=== PATIENT | male | born 2000 | race Caucasian/White ===

== ENCOUNTER 2021-03-26 22:19 | Inpatient (IN) | payer BC, SELFPAY ==
[~2021-03-26] VITALS: Ht 170.2 cm; Wt 61.4 kg
--- NOTE | 2021-03-26 23:11 | REPVR ---
PROCEDURE INFORMATION: Exam: CT Head Without Contrast Exam date and time: 03/26/2021 10:46 PM Age: 20 years old Clinical indication: Psychosis or psychotic disorder; Unspecified; Additional info: New onset psychosis TECHNIQUE: Imaging protocol: Computed tomography of the head without contrast. Radiation optimization: All CT scans at this facility use at least one of these dose optimization techniques: automated exposure control; mA and/or kV adjustment per patient size (includes targeted exams where dose is matched to clinical indication); or iterative reconstruction. COMPARISON: No relevant prior studies available. FINDINGS: Brain: Normal. No hemorrhage. Unremarkable white matter. No mass effect. Cortical loza-white matter differentiation is preserved. Cerebral ventricles: No ventriculomegaly. Paranasal sinuses: Visualized sinuses are unremarkable. No fluid levels. Mastoid air cells: Visualized mastoid air cells are well aerated. Bones/joints: Unremarkable. No acute fracture. Soft tissues: Unremarkable. IMPRESSION: No acute intracranial abnormality. Electronically signed by: Cathi Mckee On 03/26/2021 23:10:13 PM
[2021-03-26 23:34] LABS: HEMATOCRIT 43.9 % (42.0-52.0); MEAN CORPUSCULAR HEMOGLOBIN 30.9 pg (27.0-33.0); MEAN CORPUSCULAR HGB CONC 34.2 g/dl (32.0-36.5); MEAN CORPUSCULAR VOLUME 90.3 fl (80.0-96.0); PLATELET COUNT, AUTOMATED 282 10^3/uL (150-450); RED BLOOD COUNT 4.86 10^6/uL (4.30-6.10); WHITE BLOOD COUNT 11.7 10^3/uL (4.0-10.0)
[2021-03-27 00:01] LABS: ACETAMINOPHEN LEVEL < 2.0 UG/ML (10.0-30.0); ALT/SGPT 25 U/L (12-78); BILIRUBIN,DIRECT 0.3 MG/DL (0.0-0.2); BILIRUBIN,TOTAL 0.7 MG/DL (0.2-1.0); BLOOD UREA NITROGEN 17 MG/DL (7-18); CALCIUM LEVEL 8.8 MG/DL (8.5-10.1); CARBON DIOXIDE LEVEL 28 MEQ/L (21-32); CHLORIDE LEVEL 105 MEQ/L (98-107); CREATININE FOR GFR 0.91 MG/DL (0.70-1.30); ETHYL ALCOHOL (ETHANOL) < 0.003 % (0.000-0.010); GLOMERULAR FILTRATION RATE > 60.0 (>60); GLUCOSE, FASTING 81 MG/DL (70-100); POTASSIUM SERUM 3.9 MEQ/L (3.5-5.1); SALICYLATE LEVEL 3.7 MG/DL (5.0-30.0); SODIUM LEVEL 142 MEQ/L (136-145); THYROID STIMULATING HORMONE 0.648 uIU/ML (0.358-3.740); TOTAL PROTEIN 6.9 GM/DL (6.4-8.2)
[2021-03-27 00:03] LABS: RSV AMPLIFICATION NEGATIVE (NEGATIVE)
[2021-03-27 02:30] LABS: AMPHETAMINES LEVEL URINE NEGATIVE (NEGATIVE); BARBITURATES URINE NEGATIVE (NEGATIVE); BENZODIAZEPINES URINE NEGATIVE (NEGATIVE); CANNABINOIDS URINE POSITIVE (NEGATIVE); COCAINE METABOLITE URINE NEGATIVE (NEGATIVE); METHADONE URINE NEGATIVE (NEGATIVE); OPIATES URINE NEGATIVE (NEGATIVE); PHENCYCLIDINE URINE NEGATIVE (NEGATIVE)
[2021-03-27] MEDS ORDERED: MOM 30ML SUSPENSION UDC PO PRN (05:15)
[2021-03-27] MEDS ORDERED: MAALOX 30 ML SUSP *UDC PO PRN (05:15)
[2021-03-27] MEDS ORDERED: ACETAMINOPHEN TAB 650MG DOSE (2X325MG) PO PRN (05:15)
--- NOTE | 2021-03-27 05:58 | ECGEPIP ---
[facility] - ED Test Date: 2021-03-26 Pat Name: ANNA HEAD Department: Room: - Gender: Male Assistant Manager Trainee: SUNNI : 2000 Requested By: CHAYA Johnson Order Number: [id number] Reading MD: Kendall Medrano Measurements Intervals [place] Rate: 72 P: 78 LA: 144 QRS: 84 QRSD: 92 T: 63 QT: 410 QTc: 448 Interpretive Statements Normal sinus rhythm with sinus arrhythmia MODERATE INTRAVENTRICULAR CONDUCTION DELAY NO PRIORS FOR COMPARISON Electronically Signed on 03-27-2021 5:57:56 EST by Kendall Medrano
[2021-03-27] MEDS ORDERED: VITATAB73 PO (06:34)
[2021-03-27] MEDS ORDERED: D31000TA2 PO (06:34)
[2021-03-27] MEDS ORDERED: HOME MED LIST COMPLETE! XX SCH (06:35)
[2021-03-27] MEDS ORDERED: diphenhydrAMINE 50MG/ML VIAL (J1200) IM STA (12:33)
[2021-03-27] MEDS ORDERED: HALOPERIDOL 5MG/ML VIAL (J1630 PER 1) IM STA (12:33)
[2021-03-27] MEDS ORDERED: LORazepam 2 MG/ML VIAL IM STA (12:33)
[2021-03-27 16:30] VITALS: BP 100/51
--- NOTE | 2021-03-28 12:08 | MHHPEPDOC ---
General Date Of Admission: Mar 27, 2021 Legal Status: 9.39 Chief Complaint "I was running away from the Illuminati." History of Present Illness HISTORY OF THE PRESENT ILLNESS: Patient is a 20 -year-old Single, Employed, Domiciled, , male, who was brought in on a 9.41 by [place] [employer] after the patient called 911. Prior to his interview this morning, patient had taken the batteries out of cordless phone and stated that the government was listening to his conversations. Prior to his interview patient was in the doorway attempting to leave his room. Patient is Covid positive and was redirected to his room, explained the quarantine policy, and patient began to argue with staff. Patient then began to argue hospital about hospital policy, restrictions, and conspiracies. After much encouragement, patient was agreeable to interview. Patient reports in his interview today that he was run juliane away from the police after he called them. Patient talks about running away from "illuminati "that these are white people who descended from [place]. Patient believes broadcasting is happening to the phone, who is quite paranoid although cooperative in the interview, need delusional and bizarre statements throughout his interview. Patient denies any illicit use of drugs other than cannabis, denies alcohol use and reports that he has had periods of poor sleep. PER ED REPORT Pt was brought to the ED by police on a 9.41 due to bizarre behavior. Per police, on the night of 03/25/21 pt. called police & reported that he found things in the [place] that he thought police needed to see. When police arrived pt. refused to identify himself & then got in his car & took off. Police were concerned about his behavior & thought he might be under the influence so they attempted to pull him over. Pt refused to door puller & led police on a lizzy. At one point pt. was doing 90mph so police called off the lizzy due to it being too dangerous. [facility] police were called by a third constitution party who stated that pt. was on their porch & had spent the night in the [place]. Pt told police that he had been kidnapped by the Illuminati. Police spoke to pt.s mother, who had reported him missing, & she states that this behavior is not normal for pt. Pt states that he does not remember who brought him to the ED & states that he forgets things a lot. He stated that he was brought to the ED because the police are the Illuminati & "life is all just a damn lie." Pt states that he has proof that the Illuminati are doing witchcraft. He then states that he has lived through three lives, not literally but through personification, & that the three lives were past, present, & future. Pt also states that he was kidnapped by the Illuminati & that he slept in the [place] because they stole his car & money. Pt is very focused on the letter I & also states that the letter I relates to eyes. Pt also states that "shape shifters are real & I am one." Pt's TP is very disorganized & he is very hard to follow. He often provides answers that do not make sense in relation to the questions asked. For example, when asked why he was in the [place] area he stated "Alessio Gilberto." When asked about OP tx pt. stated "music & self-love." Pt's hands are covered in dirt & he is disheveled. He often laughs inappropriately. Pt denies both SI & HI. He states that he has had many suicide attempts in the past & states "we all have." Pt states he attempted suicide via "lynching." When asked about AH pt. states "I hear your voice & also the one giving me all the answers." When asked who is giving him the answers he states "[place], the goddess of wisdom." Pt reports a Hx of depression with no admissions. TW was unable to get pt. to answer questions about mood, concentration, energy levels, sleep, & appetite due to pt.s level of disorganization. TW was also unable to complete PHQ-4, RODS, or CAGE for the same reason. Pt reports occasional alcohol use & daily MJ use. His tox screen was positive for cannabis. TW spoke to pt.s mother, Vanessa Steinberg ([phone]), with pt.s permission. She states that pt has no Hx of mental health px's but over the past two weeks has become paranoid & delusional. She states that pt. has told her that people are out to hurt him & are chasing him. He also believes his mother is conspiring a gainst him. Vanessa states that he has suddenly started talking about witchcraft, gods, & goddesses. She states that pt. has trouble following what people are saying, he cannot stay on topic, & has a poor memory. She states that she does not know why put came to the [facility] (he lives in the [facility]). She states that pt. uses MJ & she is wondering if the MJ was laced with something that could cause psychosis. Psychiatric Review of Systems Depression (2 or more weeks): denies Lea (4 or more days of): denies Psychosis: visual hallucination, delusions, paranoia, disorganization PTSD: denies Anxiety: denies Past Psychiatric History Previous Psychiatric Diagnosis: ADHD Previous Psychiatric Admissions: This is the first Suicide Attempts: history of cutting Psychiatric Follow-up: none Psychiatric medications: None Past Medical History Medical Problems Noncontributory medical issues No history of surgeries No known drug allergies Hospitalizations: No Surgeries: No Family Medical/Psychiatric HX Medical Problems Maternal uncleintellectual disability Fatherhypertension Psychiatric Disorders: No Addiction: No Suicide Attemps/Completions: No (But he states "everyone has tried ") Addiction History other (Cannabis) Social History Childhood: Reports that he is from [place], has 4 brothers and 1 sister. He is the second to the last child Abuse/Trauma: Denies. Current Living Situation: Lives alone in [place]. Education: High school graduate. Employment: Works for [employer]. Social Support: Mother is supportive, he reported none. Legal: He was on probation for class III felony arson. Marital: Single, has 2 children 1 son and a daughter pays $616/month for child support. Hobbies: Working on [employer] cars, has a [address] [employer] Mental Status Examination General Appearance: unkempt, disheveled, appears stated age, hospital scubs/clothing Build: average Demeanor: mistrustful, preoccupied, guarded Eye Contact: fair Activity: agitated Behavior: uncooperative Speech: clear, reg/rate,rhythm,volume Mood: irritable Affect: disorganized Thought Process: tangential, loose, flight of ideas Thought Content (Delusions): persecutory, bizarre, paranoia, delusions Thought Content (Other): preoccupied, guarded, ideas of reference Thought Content (Aggressive): none reported Perception (Hallucinations): visual Perception (Other): illusions Cognition (Impairment of): attention/concentration Cognition(Intelligence Est.): average Oriented: Awake, Alert Insight: poor Judgment: Poor Psychosis: Psychotic Perceptions Diagnoses Unspecified psychotic disorder Cannabis use disorder A-FIB/CHADSVASC A-FIB History Current/History of A-Fib/PAF?: No Current PO Anticoag Therapy: No Assessment Patient is a 20-year-old single, employed, domiciled male who called the police on himself. The police found the patient to be psychotic and delusional. Patient had initially refused to identify himself got into his car and was in a high-speed lizzy with the police at times going as high as 90 miles an hour. On interview patient is quite psychotic and delusional. Patient reports that he was being chased by the illuminati who reports are white people from [place] in that he is also being chased by Hitler. In the interview he mention that he can touch water because water causes harm to humans as well as that is very damaging to him, he refuses to take showers. Any post tests drinks but apparently he can drink copper. He questions me as to why [place] people are fighting. He mentions that cards and vaping and radical Islamics. Stated "I am a man walking. Patient is quite disorganized delusional having flight of ideas. Prior to the interview patient who is Covid positive refused to return to his room and began to question the validity of government sanctions of Covid positive patients. Patient was calm and cooperative in the interview was able to be redirected but often times was tangential and circumstantial. His insight and judgment is poor. His cognitive functioning intellectual functioning is average. Memory and abstract reasoning is impaired. Patient will be prescribed olanzapine 10 mg at at bedtime. We discussed this medication and he is agreeable to this medication. Patient is quarantined to his room to his Covid positive results. He will be afforded individual therapy sessions, medication management and a safe environment. When patient is stable, we will discharge him back to his home in collaboration with his mother who is his support. Initial Treatment Plan 1. Patient was admitted on a [9.39] status. 2. Complete history was obtained. 3. With patients permission, family will be contacted and database will be expanded. 4. Patients medication regimen will be reviewed and changed accordingly. 5. Patient will be provided with protected environment. 6. Patient will be treated with individual, group, and milieu therapies. 7. Patient will receive supportive psych-education. 8. Discharge planning will commence immediately. 9. Outpatient follow-up treatment will be strongly recommended. 10. The initial treatment plan will focus initially on: * Altered thoughts * Substance use ESTIMATED LENGTH OF STAY: 5-7 DAYS. TIME SPENT COUNSELING AND COORDINATING INITIAL CARE: 70 minutes. Pt Refused Vital Signs Vital Signs Date Time Temp Pulse Resp B/P (MAP) Pulse Ox O2 Delivery O2 Flow Rate FiO2 03/27/21 16:30 97.1 58 16 100/51 (67) 98 Room Air Medications Scheduled Cholecalciferol (Vitamin D3) (Vitamin D3) 1,000 Unit Tablet, 1,000 UNITS PO QHS, (Reported) Vitamin B Complex (Vitamin B Complex) 1 Each Tablet, 1 TAB PO QHS, (Reported) Allergies Coded Allergies: No Known Allergies (Unverified , 03/26/21) VICKY SANTANA NP Mar 28, 2021 12:08
[2021-03-28 15:30] VITALS: BP 100/51
--- NOTE | 2021-03-28 16:22 | HPEPDOC ---
[facility] Medical History & Physical Date of Admission Mar 27, 2021 Date of Service: Mar 28, 2021 History and Physical CHIEF COMPLAINT: Medical health screening HISTORY OF PRESENT ILLNESS: Mr. Steinberg is a 20-year-old male who was in the inpatient mental health unit for paranoid delusions. Please see psychiatric H&P for history of patient's psychiatric admission. To summarize, patient had called the police on evening of 03/25/2021. He wanted to tell the police that he found something in the [place]. When police arrived, he drove off. The police lizzy was called off when he was going 90 mph due to safety reasons. He was then found on someone's porch. He talked about the illuminati doing witchcraft and that his life was a lie. When I saw patient in the inpatient mental health unit, he was resting in his bed. He feels well and denies any fever or chills, chest pain, dyspnea, abdominal pain, diarrhea, or dysuria. He did report depression, but otherwise he was appropriate. He is Covid positive but not exhibiting signs of respiratory infection. PAST MEDICAL HISTORY: Denies any past medical history and does not take any prescribed medications regularly PAST SURGICAL HISTORY: Denies any past surgeries SOCIAL HISTORY: Tobacco use: Current smoker ETOH: Sober Illicit drug use: Marijuana only FAMILY HISTORY: Father: History of heart disease Mother: History of cancer and schizophrenia per patient ALLERGIES: Please see below. REVIEW OF SYSTEMS: CONSTITUTIONAL: Denies any fever or chills. ENT: Denies sore throat. RESPIRATORY: Denies shortness of breath. Denies cough. CARDIOVASCULAR: Denies chest pain. GASTROINTESTINAL: Denies abdominal pain. Denies diarrhea. GENITOURINARY: Denies dysuria. CUTANEOUS: Denies rashes. MUSCULOSKELETAL: Denies muscle weakness. NEUROLOGICAL: Denies neuropathy. PSYCHOLOGICAL: Reports depression. HOME MEDICATIONS: Please see below. PHYSICAL EXAMINATION: VITAL SIGNS: Temperature 97.1, pulse 58, respiratory rate 16, blood pressure 100/51, pulse oximetry 98% on room air. GENERAL: Comfortable, in no apparent distress. HEENT: EOMI, sclera clear. NECK: Supple, no JVD. RESPIRATORY: Lungs clear to auscultation bilaterally, no rales, wheeze or rhonchi. CARDIOVASCULAR: Regular rate and rhythm. ABDOMEN: Soft, nontender, no guarding or rebound tenderness. Normal bowel sounds. MUSCLE SKELETAL: Muscle strength 5/5 in all extremities. NEUROLOGICAL: CN 312 grossly intact, no focal deficits noted. PSYCHOLOGICAL: Normal mood and affect LABORATORY DATA: See below. IMAGING: Radiologist interpretation CT head without contrast No acute intracranial abnormality. MICROBIOLOGY: Please see below. ASSESSMENT and PLAN: 1. Psychosis Patient has paranoid delusions Being managed in the inpatient mental health unit 2. Covid infection Patient does not have any signs of respiratory symptoms or signs of infection. Continue isolation Unclear when Covid infection for started since he is asymptomatic Supportive care Monitor for signs of infection or respiratory compromise 3. Wellness Patient should follow-up with his PCP after discharge Thank you for consulting us. We will sign off at this time. If there is any further questions or concerns, please do not hesitate to reconsult us. Vital Signs Vital Signs Date Time Temp Pulse Resp B/P (MAP) Pulse Ox O2 Delivery O2 Flow Rate FiO2 03/27/21 16:30 97.1 58 16 100/51 (67) 98 Room Air Home Medications Scheduled Cholecalciferol (Vitamin D3) (Vitamin D3) 1,000 Unit Tablet, 1,000 UNITS PO QHS Vitamin B Complex (Vitamin B Complex) 1 Each Tablet, 1 TAB PO QHS Allergies Coded Allergies: No Known Allergies (Unverified , 03/26/21) A-FIB/CHADSVASC A-FIB History Current/History of A-Fib/PAF?: No CONTRERAS ALEGRIA DO Mar 28, 2021 16:22
[2021-03-28] MEDS ORDERED: LORazepam 2 MG/ML VIAL IM STA (17:05)
[2021-03-28] MEDS ORDERED: HALOPERIDOL 5MG/ML VIAL (J1630 PER 1) IM STA (17:05)
[2021-03-28] MEDS ORDERED: diphenhydrAMINE 50MG/ML VIAL (J1200) IM STA (17:05)
--- NOTE | 2021-03-28 18:06 | IPNPDOC ---
Date Seen The patient was seen on 03/28/21. Progress Note SUBJECTIVE: CODE 25 pt was combative, aggressive, and belligerent with staff, refusing to stay in his room w COVID precautions,and demanding to be discharged. Pt could not be re-oriented. He otherwise denied any covid symptoms including cp, sob, MENDOZA, cough, fever, chills, h/a, n/v/d/abd pain. pt was subsequently placed on 4 points restraints. He expressed no medical needs, and a sitter was provided. OBJECTIVE PHYSICAL EXAMINATION: VITAL SIGNS: Please see below. GENERAL: agitated disheveled belligerent combative HEENT: could not be assessed. CARDIOVASCULAR: S1S2 RRR RESPIRATORY: CTAB AEBE ABDOMINAL: +bs soft nt nd EXTREMITIES: no c/c/e LABORATORY DATA, IMAGING STUDIES, MICROBIOLOGY: Please see below. ASSESSMENT AND PLAN: 20 y/o covid + pt admitted to [facility] for unspecified p sychotic disorder and cannabis use, s/p code 25 for aggression, demanding to be released. covid + -not hypoxic, tachycardic, or tachypneic -continue with contact and droplet precautions unspecified psychotic disorder -managed by primary psychiatric team VS, I&O, 24H, Fishbone Vital Signs/I&O Vital Signs Date Time Temp Pulse Resp B/P (MAP) Pulse Ox O2 Delivery O2 Flow Rate FiO2 03/27/21 16:30 97.1 58 16 100/51 (67) 98 Room Air JULIUS RODRIGUEZ MD Mar 28, 2021 18:06
[2021-03-28] MEDS: OLANZapine 10 MG TAB PO SCH (20:39)
[2021-03-29 06:21] VITALS: BP 105/60
--- NOTE | 2021-03-29 09:44 | MHIPNPDOC ---
[facility] Progress Note Progress Note DATE OF SERVICE: 03/29/21 HISTORY: Patient is a 20 -year-old Single, Employed, Domiciled, , male, who was brought in on a 9.41 by [place] [employer] after the patient called 911. Prior to his interview this morning, patient had taken the batteries out of cordless phone and stated that the government was listening to his conversations. The patient was in the doorway attempting to leave his room. He is Covid positive and was redirected to his room, explained the quarantine policy, and patient began to argue with staff. He then began to argue hospital about hospital policy, restrictions, and conspiracies. After much encouragement, patient was agreeable to interview. Patient reports today that he was running away from the police. Patient had called them and they found him in the [place]/ Patient talks about running away from "illuminati "that these are white people who descended from [place]. Patient believes broadcasting is happening to the phone, he is quite paranoid although cooperative in the interview, made delusional and bizarre statements throughout his interview. Patient denies any illicit use of drugs other than cannabis, denies alcohol use and reports that he has had periods of poor sleep recently. PER ED REPORT Pt was brought to the ED by police on a 9.41 due to bizarre behavior. Per police, on the night of 03/25/21 pt. called police & reported that he found things in the [place] that he thought police needed to see. When police arrived pt. refused to identify himself & then got in his car & took off. Police were concerned about his behavior & thought he might be under the influence so they attempted to pull him over. Pt refused to pull worker & led police on a lizzy. At one point pt. was doing 90mph so police called off the lizzy due to it being too dangerous. [facility] police were called by a third alliance party who stated that pt. was on their porch & had spent the night in the [place]. Pt told police that he had been kidnapped by the Illuminati. Police spoke to pt.s mother, who had reported him missing, & she states that this behavior is not normal for pt. Pt states that he does not remember who brought him to the ED & states that he forgets things a lot. He stated that he was brought to the ED because the police are the Illuminati & "life is all just a damn lie." Pt states that he has proof that the Illuminati are doing witchcraft. He then states that he has lived through three lives, not literally but through personification, & that the three lives were past, present, & future. Pt also states that he was kidnapped by the Illuminati & that he slept in the [place] because they stole his car & money. Pt is very focused on the letter I & also states that the letter I relates to eyes. Pt also states that "shape shifters are real & I am one." Pt's TP is very disorganized & he is very hard to follow. He often provides answers that do not make sense in relation to the questions asked. For example, when asked why he was in the [place] area he stated "Alessio Macias." When asked about OP tx pt. stated "music & self-love." Pt's hands are covered in dirt & he is disheveled. He often laughs inappropriately. Pt denies both SI & HI. He states that he has had many suicide attempts in the past & states "we all have." Pt states he attempted suicide via "lynching." When asked about AH pt. states "I hear your voice & also the one giving me all the answers." When asked who is giving him the answers he states "[place], the goddess of wisdom." Pt reports a Hx of depression with no admissions. TW was unable to get pt. to answer questions about mood, concentration, energy levels, sleep, & appetite due to pt.s level of disorganization. TW was also unable to complete PHQ-4, RODS, or CAGE for the same reason. Pt reports occasional alcohol use & daily MJ use. His tox screen was positive for cannabis. TW spoke to pt.s mother, Vanessa Steinberg ([phone]), with pt.s permission. She states that pt has no Hx of mental health px's but over the past two weeks has become paranoid & delusional. She states that pt. has told her that people are out to hurt him & are chasing him. He also believes his mother is conspiring against him. Vanessa states that he has suddenly started talking about witchcraft, gods, & goddesses. She states that pt. has trouble following what people are saying, he cannot stay on topic, & has a poor memory. She states that she does not know why put came to the [facility] (he lives in the [facility]). She states that pt. uses MJ & she is wondering if the MJ was laced with something that could cause psychosis. VITAL SIGNS: See below. NEW TEST RESULTS: None CURRENT MEDICATIONS: See below. MENTAL STATUS EXAMINATION: Patient is a 20 -year-old Single, Employed, Domiciled, , male, who was brought in on a 9.41 by [place] [employer] after the patient called 911 he is delusional and psychotic. General Appearance: unkempt, disheveled, appears stated age, hospital scubs/clothing Build: average Demeanor: mistrustful, preoccupied, guarded Eye Contact: avoidant Activity: agitated Behavior: cooperative Speech: clear, reg/rate,rhythm,volume Mood: irritable Affect: disorganized Thought Process: tangential, loose, Thought Content (Delusions): persecutory, bizarre, paranoia, delusions Thought Content (Other): preoccupied, guarded, ideas of reference Thought Content (Aggressive): none reported Perception (Hallucinations): visual Perception (Other): illusions Cognition (Impairment of): attention/concentration Cognition(Intelligence Est.): average Oriented: Awake, Alert Insight: poor Judgment: Poor Psychosis: Psychotic Perceptions Diagnoses Unspecified psychotic disorder Cannabis use disorder ASSESSMENT: Patient found in his room. He reports that he does not need medication and wants to go home, does not know why he is in the hospital. Continues to make delusional statements states that he was trying to run away from the police because of the people that were after him. He remembers that he called the police and he stated that he called them because he ran out of gas (this contradicts the story that he got into his car and had a high-speed lizzy with police) patient states he wants to call his mother he does not know why we are not allowing him to. Patient is Covid positive, yesterday he broke the cordless phone, and he is quarantined to his room and he is unable to use the phones in the hallway. He becomes very tearful and states that he has been having his wiccan and potter thoughts since he was young. He continues to have psychotic and delusional thoughts and disorganized thinking. States that the medications are zapping the energy from himpatient was given emergency medications due to agitation and aggressiveness yesterday. He is refusing the olanzapine at night, he was encouraged to take this medication to help with his thoughts and his aggression. I have attempted to explain to him that he can be discharged when he is stable and that medications will help him He was unable to retain the information. Reviewed with patient the circumstances that brought him to the hospital. He states that he had to call on the police but [facility] to [facility] his wiccan zoroastrian. Again, became tearful saying he wants to call his mother and that he is is being held illegally. Patient given journal and novels to read. MANAGEMENT PLAN: Continue medications. Discharge when stable TIME SPENT: 20 minutes. Vital Signs Vital Signs Date Time Temp Pulse Resp B/P (MAP) Pulse Ox O2 Delivery O2 Flow Rate FiO2 03/29/21 06:21 98.0 65 18 105/60 (75) 99 Room Air Current Medications Current Medications Medications (Trade) Dose Ordered Sig/Gato Route PRN Reason Start Time Stop Time Status Last Admin Dose Admin Acetaminophen (Tylenol Tab) 650 mg Q6HP PRN PO HEADACHE or MILD DISCOMFORT 03/27/21 05:15 Al Hydrox/Mg Hydrox/Simethicone (Mylanta) 30 ml Q4HP PRN PO HEARTBURN/INDIGESTION 03/27/21 05:15 Diphenhydramine HCl (Benadryl) 50 mg STAT STAT IM 03/27/21 12:33 03/27/21 12:37 DC 03/27/21 13:48 Diphenhydramine HCl (Benadryl) 50 mg STAT STAT IM 03/28/21 17:05 03/28/21 17:10 DC 03/28/21 17:35 Haloperidol (Haldol) 10 mg STAT STAT IM 03/27/21 12:33 03/27/21 12:37 DC 03/27/21 13:48 Haloperidol (Haldol) 10 mg STAT STAT IM 03/28/21 17:05 03/28/21 17:10 DC 03/28/21 17:36 Home Med (Home Med List Complete!) ASDIRECTED XX 03/27/21 06:35 03/27/21 06:36 DC Lorazepam (Ativan) 2 mg STAT STAT IM 03/27/21 12:33 03/27/21 12:37 DC 03/27/21 13:48 Lorazepam (Ativan) 2 mg STAT STAT IM 03/28/21 17:05 03/28/21 17:10 DC 03/28/21 17:36 Magnesium Hydroxide (Milk Of Magnesia) 30 ml DAILYPRN PRN PO CONSTIPATION 03/27/21 05:15 Olanzapine (ZyPREXA ZYDIS) 5 mg Q6HP PRN PO ANXIETY/AGITATION 03/28/21 19:00 Olanzapine (ZyPREXA) 10 mg QHS PO 03/28/21 21:00 Trazodone HCl (Desyrel) 50 mg QHSP PRN PO INSOMNIA 03/27/21 05:15 Allergies Coded Allergies: No Known Allergies (Unverified , 03/26/21) VICKY SANTANA CASHIER GENERAL Mar 29, 2021 08:00
--- NOTE | 2021-03-29 11:55 | MHPR ---
General Date: Mar 29, 2021 Time: 11:48 Post-Restraint Evaluation THE OUTCOME OF THE RESTRAINT: Positive, patient is in better control, no aggressiveness noted EFFECTIVENESS OF THE RESTRAINT: Mechanical and/or chemical: [Positive]. ANY EVIDENCE THAT THE PATIENT WAS AFFECTED EMOTIONALLY: Patient denies any issues from his restraints. He is alert. Remains psychotic and delusion ANY NEED FOR COUNSELING/ASSISTANCE: Patient seen today with this sports writer for individual session CHANGES IN TREATMENT PLAN: None RECOMMENDATIONS FOR FUTURE INCIDENTS: Determine Cause Validate Feelings Verbal Limit Setting Mediation Redirection Contract for Safety Staff Support Behavioral Techniques Medication for Agitation Calming Interventions VICKY SANTANA NP Mar 29, 2021 11:55
[2021-03-29 18:37] VITALS: BP 115/68
[2021-03-29] MEDS: OLANZapine 10 MG TAB PO SCH (21:00)
[2021-03-29] MEDS: traZODone 50 MG TAB PO PRN (23:26)
[2021-03-30 06:53] VITALS: BP_SYST 115; BP_SYST 134; BP_DIAS 64; BP_DIAS 83
[2021-03-30] MEDS: NICOTINE 21MG/24HR 1 EA TRANSDERMAL TD SCH (08:19)
[2021-03-30] MEDS: OLANZapine 10 MG TAB PO SCH (20:37)
[2021-03-30] MEDS: traZODone 50 MG TAB PO PRN (20:37)
--- NOTE | 2021-03-30 22:04 | MHIPNPDOC ---
[facility] Progress Note Progress Note DATE OF SERVICE: 03/30/21 HISTORY: Patient is a 20 -year-old Single, Employed, Domiciled, , male, who was brought in on a 9.41 by [place] [employer] after the patient called 911. Prior to his interview this morning, patient had taken the batteries out of cordless phone and stated that the government was listening to his conversations. The patient was in the doorway attempting to leave his room. He is Covid positive and was redirected to his room, explained the quarantine policy, and patient began to argue with staff. He then began to argue hospital about hospital policy, restrictions, and conspiracies. After much encouragement, patient was agreeable to interview. Patient reports today that he was running away from the police. Patient had called them and they found him in the [place]/ Patient talks about running away from "illuminati "that these are white people who descended from [place]. Patient believes broadcasting is happening to the phone, he is quite paranoid although cooperative in the interview, made delusional and bizarre statements throughout his interview. Patient denies any illicit use of drugs other than cannabis, denies alcohol use and reports that he has had periods of poor sleep recently. PER ED REPORT Pt was brought to the ED by police on a 9.41 due to bizarre behavior. Per police, on the night of 03/25/21 pt. called police & reported that he found things in the [place] that he thought police needed to see. When police arrived pt. refused to identify himself & then got in his car & took off. Police were concerned about his behavior & thought he might be under the influence so they attempted to pull him over. 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 At one point pt. was doing 90mph so police called off the lizzy due to it being too dangerous. [facility] police were called by a third libertarian who stated that pt. was on their porch & had spent the night in the [place]. Pt told police that he had been kidnapped by the Illuminati. Police spoke to pt.s mother, who had reported him missing, & she states that this behavior is not normal for pt. Pt states that he does not remember who brought him to the ED & states that he forgets things a lot. He stated that he was brought to the ED because the police are the Illuminati & "life is all just a damn lie." Pt states that he has proof that the Illuminati are doing witchcraft. He then states that he has lived through three lives, not literally but through personification, & that the three lives were past, present, & future. Pt also states that he was kidnapped by the Illuminati & that he slept in the [place] because they stole his car & money. Pt is very focused on the letter I & also states that the letter I relates to eyes. Pt also states that "shape shifters are real & I am one." Pt's TP is very disorganized & he is very hard to follow. He often provides answers that do not make sense in relation to the questions asked. For example, when asked why he was in the [place] area he stated "Alessio Macias." When asked about OP tx pt. stated "music & self-love." Pt's hands are covered in dirt & he is disheveled. He often laughs inappropriately. Pt denies both SI & HI. He states that he has had many suicide attempts in the past & states "we all have." Pt states he attempted suicide via "lynching." When asked about AH pt. states "I hear your voice & also the one giving me all the answers." When asked who is giving him the answers he states "[place], the goddess of wisdom." Pt reports a Hx of depression with no admissions. TW was unable to get pt. to answer questions about mood, concentration, energy levels, sleep, & appetite due to pt.s level of disorganization. TW was also unable to complete PHQ-4, RODS, or CAGE for the same reason. Pt reports occasional alcohol use & daily MJ use. His tox screen was positive for cannabis. TW spoke to pt.s mother, Vanessa Steinberg ([phone]), with pt.s permission. She states that pt has no Hx of mental health px's but over the past two weeks has become paranoid & delusional. She states that pt. has told her that people are out to hurt him & are chasing him. He also believes his mother is conspiring against him. July states that he has suddenly started talking about witchcraft, gods, & goddesses. She states that pt. has trouble following what people are saying, he cannot stay on topic, & has a poor memory. She states that she does not know why put came to the [facility] (he lives in the [facility]). She states that pt. uses MJ & she is wondering if the MJ was laced with something that could cause psychosis. INTERVAL HISTORY: Denies complaints today except to request his trash be taken out. Has been non-compliant with medications although on review did take Zyprexa tonight. Reports that he has been sleeping well and feels fine, denies any hallucinations today. VITAL SIGNS: See below. NEW TEST RESULTS: None CURRENT MEDICATIONS: See below. MENTAL STATUS EXAMINATION: Patient is a 20 -year-old Single, Employed, Domiciled, , male, who was brought in on a 9.41 by [place] [employer] after the patient called 911 he is delusional and psychotic. General Appearance: unkempt, disheveled, appears stated age, hospital scubs/clothing Build: average Demeanor: neutral, cooperative Eye Contact: normal eye contact Activity: calm Behavior: cooperative Speech: clear, reg/rate,rhythm,volume Mood: "good" (gave a thumbs up as he said this) Affect: disorganized Thought Process: tangential, loose, Thought Content (Delusions): persecutory, bizarre, paranoia, delusions Thought Content (Other): preoccupied, guarded, ideas of reference Thought Content (Aggressive): none reported Perception (Hallucinations): visual Perception (Other): illusions Cognition (Impairment of): attention/concentration Cognition(Intelligence Est.): average Oriented: Awake, Alert Insight: poor Judgment: Poor Psychosis: Psychotic Perceptions Diagnoses Unspecified psychotic disorder Cannabis use disorder ASSESSMENT: Patient found in his room. He reports that he does not need medication and wants to go home, does not know why he is in the hospital. Continues to make delusional statements states that he was trying to run away from the police because of the people that were after him. He remembers that he called the police and he stated that he called them because he ran out of gas (this contradicts the story that he got into his car and had a high-speed lizzy with police) patient states he wants to call his mother he does not know why we are not allowing him to. Patient is Covid positive, yesterday he broke the cordless phone, and he is quarantined to his room and he is unable to use the phones in the hallway. He becomes very tearful and states that he has been having his wiccan and potter thoughts since he was young. He continues to have psychotic and delusional thoughts and disorganized thinking. States that the medications are zapping the energy from himpatient was given emergency medications due to agitation and aggressiveness yesterday. He is refusing the olanzapine at night, he was encouraged to take this medication to help with his thoughts and his aggression. I have attempted to explain to him that he can be discharged when he is stable and that medications will help him He was unable to retain the information. Reviewed with patient the circumstances that brought him to the hospital. He states that he had to call on the police but he was in [place] to practice his wiccan anabaptist. Again, became tearful saying he wants to call his mother and that he is is being held illegally. Patient given journal and novels to read. MANAGEMENT PLAN: Continue medications. Discharge when stable TIME SPENT: 10 minutes. Vital Signs Vital Signs Date Time Temp Pulse Resp B/P (MAP) Pulse Ox O2 Delivery O2 Flow Rate FiO2 03/30/21 06:53 97.9 87 16 115/64 (81) 100 Room Air Current Medications Current Medications Medications (Trade) Dose Ordered Sig/Gato Route PRN Reason Start Time Stop Time Status Last Admin Dose Admin Acetaminophen (Tylenol Tab) 650 mg Q6HP PRN PO HEADACHE or MILD DISCOMFORT 03/27/21 05:15 Al Hydrox/Mg Hydrox/Simethicone (Mylanta) 30 ml Q4HP PRN PO HEARTBURN/INDIGESTION 03/27/21 05:15 Diphenhydramine HCl (Benadryl) 50 mg STAT STAT IM 03/27/21 12:33 03/27/21 12:37 DC 03/27/21 13:48 Diphenhydramine HCl (Benadryl) 50 mg STAT STAT IM 03/28/21 17:05 03/28/21 17:10 DC 03/28/21 17:35 Haloperidol (Haldol) 10 mg STAT STAT IM 03/27/21 12:33 03/27/21 12:37 DC 03/27/21 13:48 Haloperidol (Haldol) 10 mg STAT STAT IM 03/28/21 17:05 03/28/21 17:10 DC 03/28/21 17:36 Home Med (Home Med List Complete!) ASDIRECTED XX 03/27/21 06:35 03/27/21 06:36 DC Lorazepam (Ativan) 2 mg STAT STAT IM 03/27/21 12:33 03/27/21 12:37 DC 03/27/21 13:48 Lorazepam (Ativan) 2 mg STAT STAT IM 03/28/21 17:05 03/28/21 17:10 DC 03/28/21 17:36 Magnesium Hydroxide (Milk Of Magnesia) 30 ml DAILYPRN PRN PO CONSTIPATION 03/27/21 05:15 Nicotine (Nicoderm Cq 21mg) 1 patch DAILY TD 03/30/21 09:00 03/30/21 08:19 Olanzapine (ZyPREXA ZYDIS) 5 mg Q6HP PRN PO ANXIETY/AGITATION 03/28/21 19:00 Olanzapine (ZyPREXA) 10 mg QHS PO 03/28/21 21:00 03/30/21 20:37 Trazodone HCl (Desyrel) 50 mg QHSP PRN PO INSOMNIA 03/27/21 05:15 03/30/21 20:37 Allergies Coded Allergies: No Known Allergies (Unverified , 03/26/21) YASMIN CLANCY MD Mar 30, 2021 22:04
[2021-03-30] MEDS: OLANZapine ORAL DISINTEGRATING TAB 5MG PO PRN (22:56)
[2021-03-30] MEDS ORDERED: OLANZapine ORAL DISINTEGRATING TAB 5MG PO STA (23:12)
[2021-03-30] MEDS ORDERED: LORazepam 2 MG TAB PO STA (23:12)
[2021-03-30] MEDS ORDERED: diphenhydrAMINE 50MG CAP PO STA (23:12)
[2021-03-30] MEDS ORDERED: diphenhydrAMINE 50MG/ML VIAL (J1200) IM STA (23:27)
[2021-03-30] MEDS ORDERED: LORazepam 2 MG/ML VIAL IM STA (23:27)
[2021-03-30] MEDS ORDERED: HALOPERIDOL 5MG/ML VIAL (J1630 PER 1) IM STA (23:27)
[2021-03-30 23:45] VITALS: BP 132/75
[2021-03-31] VITALS: BP 108/55
[2021-03-31 00:15] VITALS: BP_SYST 101; BP_SYST 108; BP_DIAS 55; BP_DIAS 57
[2021-03-31 00:30] VITALS: BP 99/54
[2021-03-31 00:45] VITALS: BP 101/69
[2021-03-31 01:00] VITALS: BP 101/69
--- NOTE | 2021-03-31 03:29 | IPNPDOC ---
Date Seen The patient was seen on 03/30/21. Progress Note SUBJECTIVE: 20 y/o male, [facility] Code 25 called. Patient had been agitated and was attempting to leave. He had refused medications. He was under control before I arrived, and agreed to take his oral medication OBJECTIVE: Patient is without injury and has no signs or symptoms of distress. DISPOSITION: Return to room VS, I&O, 24H, Fishbone Vital Signs/I&O Vital Signs Date Time Temp Pulse Resp B/P (MAP) Pulse Ox O2 Delivery O2 Flow Rate FiO2 03/31/21 01:15 14 03/31/21 01:00 54 101/69 03/30/21 23:45 98.4 98 Room Air Yanni Swain Mar 31, 2021 03:29
[2021-03-31] MEDS: NICOTINE 21MG/24HR 1 EA TRANSDERMAL TD SCH (09:05)
--- NOTE | 2021-03-31 11:52 | MHIPNPDOC ---
[facility] Progress Note Progress Note DATE OF SERVICE: 03/31/21 HISTORY: Patient is a 20 -year-old Single, Employed, Domiciled, , male, who was brought in on a 9.41 by [place] [employer] after the patient called 911. Prior to his interview this morning, patient had taken the batteries out of cordless phone and stated that the government was listening to his conversations. The patient was in the doorway attempting to leave his room. He is Covid positive and was redirected to his room, explained the quarantine policy, and patient began to argue with staff. He then began to argue hospital about hospital policy, restrictions, and conspiracies. After much encouragement, patient was agreeable to interview. Patient reports today that he was running away from the police. Patient had called them and they found him in the [place]/ Patient talks about running away from "illuminati "that these are white people who descended from [place]. Patient believes broadcasting is happening to the phone, he is quite paranoid although cooperative in the interview, made delusional and bizarre statements throughout his interview. Patient denies any illicit use of drugs other than cannabis, denies alcohol use and reports that he has had periods of poor sleep recently. PER ED REPORT Pt was brought to the ED by police on a 9.41 due to bizarre behavior. Per police, on the night of 03/25/21 pt. called police & reported that he found things in the [place] that he thought police needed to see. When police arrived pt. refused to identify himself & then got in his car & took off. Police were concerned about his behavior & thought he might be under the influence so they attempted to pull him over. Pt refused to pin puller & led police on a lizzy. At one point pt. was doing 90mph so police called off the lizzy due to it being too dangerous. [facility] police were called by a third democrat who stated that pt. was on their porch & had spent the night in the [place]. Pt told police that he had been kidnapped by the Illuminati. Police spoke to pt.s mother, who had reported him missing, & she states that this behavior is not normal for pt. Pt states that he does not remember who brought him to the ED & states that he forgets things a lot. He stated that he was brought to the ED because the police are the Illuminati & "life is all just a damn lie." Pt states that he has proof that the Illuminati are doing witchcraft. He then states that he has lived through three lives, not literally but through personification, & that the three lives were past, present, & future. Pt also states that he was kidnapped by the Illuminati & that he slept in the [place] because they stole his car & money. Pt is very focused on the letter I & also states that the letter I relates to eyes. Pt also states that "shape shifters are real & I am one." Pt's TP is very disorganized & he is very hard to follow. He often provides answers that do not make sense in relation to the questions asked. For example, when asked why he was in the [place] area he stated "Alessio Macias." When asked about OP tx pt. stated "music & self-love." Pt's hands are covered in dirt & he is disheveled. He often laughs inappropriately. Pt denies both SI & HI. He states that he has had many suicide attempts in the past & states "we all have." Pt states he attempted suicide via "lynching." When asked about AH pt. states "I hear your voice & also the one giving me all the answers." When asked who is giving him the answers he states "[place], the goddess of wisdom." Pt reports a Hx of depression with no admissions. TW was unable to get pt. to answer questions about mood, concentration, energy levels, sleep, & appetite due to pt.s level of disorganization. TW was also unable to complete PHQ-4, RODS, or CAGE for the same reason. Pt reports occasional alcohol use & daily MJ use. His tox screen was positive for cannabis. TW spoke to pt.s mother, Vanessa Steinberg ([phone]), with pt.s permission. She states that pt has no Hx of mental health px's but over the past two weeks has become paranoid & delusional. She states that pt. has told her that people are out to hurt him & are chasing him. He also believes his mother is conspiring against him. July states that he has suddenly started talking about witchcraft, gods, & goddesses. She states that pt. has trouble following what people are saying, he cannot stay on topic, & has a poor memory. She states that she does not know why put came to the [place] area (he lives in the [facility]). She states that pt. uses MJ & she is wondering if the MJ was laced with something that could cause psychosis. INTERVAL HISTORY: Today Willi is found asleep in his room, he does not readily respond to his name being called. Last night around midnight he attempted to escape the unit and was assorted back to his room, he was offered as needed medications by mouth however once the medications were brought to him he refused them and was subsequently given an injection to maintain safety of himself and others in the unit. Vital signs been stable, he did opt to take his prescribed olanzapine last night prior to the elopement. We will continue to monitor over time and address needs as appropriate. VITAL SIGNS: See below. NEW TEST RESULTS: None CURRENT MEDICATIONS: See below. MENTAL STATUS EXAMINATION: Patient is a 20 -year-old Single, Employed, Domiciled, , male, who was brought in on a 9.41 by [place] [employer] after the patient called 911 he is delusional and psychotic. Asleep, did not respond to his name being called. Likely still sedated from as needed's given yesterday during his escalation. Diagnoses Unspecified psychotic disorder Cannabis use disorder ASSESSMENT: Patient in his room today asleep, attempted to elope last night was given as needed injection of Haldol, Ativan, and Benadryl. Likely he is still sedated from this combination in addition to the 10 mg of olanzapine which she took for the first time last night. The hope would be that once he is awake that he will be more compliant with medication management has been prescribed, and alternative strategy if he continues to refuse medications may be to offer a smaller dose of olanzapine in the morning as well as the 10 mg dose at nighttime in order to have more opportunities for him to be presented the medication p ossibly increasing his compliance if he sporadically chooses to accept 1. MANAGEMENT PLAN: Continue medications. Discharge when stable TIME SPENT: 10 minutes. Vital Signs Vital Signs Date Time Temp Pulse Resp B/P (MAP) Pulse Ox O2 Delivery O2 Flow Rate FiO2 03/31/21 01:15 14 03/31/21 01:00 54 101/69 03/30/21 23:45 98.4 98 Room Air Current Medications Current Medications Medications (Trade) Dose Ordered Sig/Gato Route PRN Reason Start Time Stop Time Status Last Admin Dose Admin Acetaminophen (Tylenol Tab) 650 mg Q6HP PRN PO HEADACHE or MILD DISCOMFORT 03/27/21 05:15 Al Hydrox/Mg Hydrox/Simethicone (Mylanta) 30 ml Q4HP PRN PO HEARTBURN/INDIGESTION 03/27/21 05:15 Diphenhydramine HCl (Benadryl) 50 mg STAT STAT IM 03/27/21 12:33 03/27/21 12:37 DC 03/27/21 13:48 Diphenhydramine HCl (Benadryl) 50 mg STAT STAT IM 03/28/21 17:05 03/28/21 17:10 DC 03/28/21 17:35 Diphenhydramine HCl (Benadryl) 50 mg STAT STAT IM 03/30/21 23:27 03/30/21 23:30 DC 03/30/21 23:47 Diphenhydramine HCl (Benadryl) 50 mg STAT STAT PO 03/30/21 23:12 03/30/21 23:16 DC Haloperidol (Haldol) 5 mg STAT STAT IM 03/30/21 23:27 03/30/21 23:30 DC 03/30/21 23:47 Haloperidol (Haldol) 10 mg STAT STAT IM 03/27/21 12:33 03/27/21 12:37 DC 03/27/21 13:48 Haloperidol (Haldol) 10 mg STAT STAT IM 03/28/21 17:05 03/28/21 17:10 DC 03/28/21 17:36 Home Med (Home Med List Complete!) ASDIRECTED XX 03/27/21 06:35 03/27/21 06:36 DC Lorazepam (Ativan) 2 mg STAT STAT IM 03/27/21 12:33 03/27/21 12:37 DC 03/27/21 13:48 Lorazepam (Ativan) 2 mg STAT STAT IM 03/28/21 17:05 03/28/21 17:10 DC 03/28/21 17:36 Lorazepam (Ativan) 2 mg STAT STAT IM 03/30/21 23:27 03/30/21 23:30 DC 03/30/21 23:47 Lorazepam (Ativan) 2 mg STAT STAT PO 03/30/21 23:12 03/30/21 23:16 DC Magnesium Hydroxide (Milk Of Magnesia) 30 ml DAILYPRN PRN PO CONSTIPATION 03/27/21 05:15 Nicotine (Nicoderm Cq 21mg) 1 patch DAILY TD 03/30/21 09:00 03/31/21 09:05 Olanzapine (ZyPREXA ZYDIS) 5 mg Q6HP PRN PO ANXIETY/AGITATION 03/28/21 19:00 Olanzapine (ZyPREXA ZYDIS) 5 mg STAT STAT PO 03/30/21 23:12 03/30/21 23:16 DC Olanzapine (ZyPREXA) 10 mg QHS PO 03/28/21 21:00 03/30/21 20:37 Trazodone HCl (Desyrel) 50 mg QHSP PRN PO INSOMNIA 03/27/21 05:15 03/30/21 20:37 Allergies Coded Allergies: No Known Allergies (Unverified , 03/26/21) YASMIN CLANCY MD Mar 31, 2021 11:52
[2021-03-31] MEDS ORDERED: LORazepam 2 MG TAB PO STA (17:41)
[2021-03-31] MEDS ORDERED: OLANZapine ORAL DISINTEGRATING TAB 5MG PO STA (17:41)
[2021-03-31] MEDS ORDERED: diphenhydrAMINE 50MG CAP PO STA (17:41)
[2021-03-31] MEDS: OLANZapine 10 MG TAB PO SCH (21:17)
[2021-04-01 06:38] VITALS: BP 113/68
[2021-04-01] MEDS: OLANZapine ORAL DISINTEGRATING TAB 5MG PO PRN (09:15)
[2021-04-01] MEDS: NICOTINE 21MG/24HR 1 EA TRANSDERMAL TD SCH (09:15)
--- NOTE | 2021-04-01 10:09 | MHIPNPDOC ---
[facility] Progress Note Progress Note DATE OF SERVICE: 04/01/21 HISTORY: Patient is a 20 -year-old Single, Employed, Domiciled, , male, who was brought in on a 9.41 by [place] [employer] after the patient called 911. Prior to his interview this morning, patient had taken the batteries out of cordless phone and stated that the government was listening to his conversations. The patient was in the doorway attempting to leave his room. He is Covid positive and was redirected to his room, explained the quarantine policy, and patient began to argue with staff. He then began to argue hospital about hospital policy, restrictions, and conspiracies. After much encouragement, patient was agreeable to interview. Patient reports today that he was running away from the police. Patient had called them and they found him in the [place]/ Patient talks about running away from "illuminati "that these are white people who descended from [place]. Patient believes broadcasting is happening to the phone, he is quite paranoid although cooperative in the interview, made delusional and bizarre statements throughout his interview. Patient denies any illicit use of drugs other than cannabis, denies alcohol use and reports that he has had periods of poor sleep recently. PER ED REPORT Pt was brought to the ED by police on a 9.41 due to bizarre behavior. Per police, on the night of 03/25/21 pt. called police & reported that he found things in the [place] that he thought police needed to see. When police arrived pt. refused to identify himself & then got in his car & took off. Police were concerned about his behavior & thought he might be under the influence so they attempted to pull him over. Pt refused to loop puller & led police on a lizzy. At one point pt. was doing 90mph so police called off the lizzy due to it being too dangerous. [facility] police were called by a third alliance party who stated that pt. was on their porch & had spent the night in the [place]. Pt told police that he had been kidnapped by the Illuminati. Police spoke to pt.s mother, who had reported him missing, & she states that this behavior is not normal for pt. Pt states that he does not remember who brought him to the ED & states that he forgets things a lot. He stated that he was brought to the ED because the police are the Illuminati & "life is all just a damn lie." Pt states that he has proof that the Illuminati are doing witchcraft. He then states that he has lived through three lives, not literally but through personification, & that the three lives were past, present, & future. Pt also states that he was kidnapped by the Illuminati & that he slept in the [place] because they stole his car & money. Pt is very focused on the letter I & also states that the letter I relates to eyes. Pt also states that "shape shifters are real & I am one." Pt's TP is very disorganized & he is very hard to follow. He often provides answers that do not make sense in relation to the questions asked. For example, when asked why he was in the [place] area he stated "Alessio Macias." When asked about OP tx pt. stated "music & self-love." Pt's hands are covered in dirt & he is disheveled. He often laughs inappropriately. Pt denies both SI & HI. He states that he has had many suicide attempts in the past & states "we all have." Pt states he attempted suicide via "lynching." When asked about AH pt. states "I hear your voice & also the one giving me all the answers." When asked who is giving him the answers he states "[place], the goddess of wisdom." Pt reports a Hx of depression with no admissions. TW was unable to get pt. to answer questions about mood, concentration, energy levels, sleep, & appetite due to pt.s level of disorganization. TW was also unable to complete PHQ-4, RODS, or CAGE for the same reason. Pt reports occasional alcohol use & daily MJ use. His tox screen was positive for cannabis. TW spoke to pt.s mother, Vanessa Steinberg ([phone]), with pt.s permission. She states that pt has no Hx of mental health px's but over the past two weeks has become paranoid & delusional. She states that pt. has told her that people are out to hurt him & are chasing him. He also believes his mother is conspiring against him. July states that he has suddenly started talking about witchcraft, gods, & goddesses. She states that pt. has trouble following what people are saying, he cannot stay on topic, & has a poor memory. She states that she does not know why put came to the [place] area (he lives in the [facility]). She states that pt. uses MJ & she is wondering if the MJ was laced with something that could cause psychosis. INTERVAL HISTORY: Today Willi is found asleep in his room, he does not readily respond to his name being called. Last night around midnight he attempted to escape the unit and was assorted back to his room, he was offered as needed medications by mouth however once the medications were brought to him he refused them and was subsequently given an injection to maintain safety of himself and others in the unit. Vital signs been stable, he did opt to take his prescribed olanzapine last night prior to the elopement. We will continue to monitor over time and address needs as appropriate. VITAL SIGNS: See below. NEW TEST RESULTS: None CURRENT MEDICATIONS: See below. MENTAL STATUS EXAMINATION: Patient is a 20 -year-old Single, Employed, Domiciled, , male, who was brought in on a 9.41 by [place] [employer] after the patient called 911 he is delusional and psychotic. General Appearance: unkempt, disheveled, appears stated age, hospital scubs/clothing Build: average Demeanor: neutral, cooperative Eye Contact: normal eye contact Activity: calm Behavior: cooperative Speech: clear, reg/rate,rhythm,volume Mood: "good" Affect: flat Thought Process: tangential, loose, Thought Content (Delusions): some grandiosity, racing thoughts Thought Content (Other): grandiose Thought Content (Aggressive): none reported Perception (Hallucinations): visual Perception (Other): illusions Cognition (Impairment of): none Cognition(Intelligence Est.): average Oriented: Awake, Alert Insight: fair Judgment: fair Psychosis: milder Psychotic Perceptions Diagnoses Unspecified psychotic disorder Cannabis use disorder ASSESSMENT: Patient appears to be improving. He does demonstrate some grandiosity, reports racing thoughts, but his speech and affect does not reflect that. He talks about racing thoughts all of his life. And that he had been having several nights of less than 3 hours of sleep. He reports a history of cannabis use, DAB cards, vape cartridges and/or Hydd. States that he has an ability to hear bat frequencies. We talked about mood stabilization that might help him with the racing thoughts. He is agreeable to Zyprexa and states that this has been helpful. Reports no side effects other then sedation. He feels that he is stabilizing and this provider is in agreement that although he still has mild disorganization in his thought process but not psychotic and unable to make sound choices. Will call mother for collaboration in discharge planning. Patient is more cooperative at this time. Has been reading books and journaling. Thought process is improving. Denies suicidal ideation, homicidal ideation, denies depression and anxiety. He denies auditory and visual hallucinations at this time. He is not psychotic, but has some grandiosity and odd beliefs "I can hear bat frequencies." 10:40 Spoke with patient's mother who states that patient is doing well, she believes that he is baseline. She can pick him up tomorrow. MANAGEMENT PLAN: Continue medications. Discharge when stable. Discharge possible on Thursday TIME SPENT: 25 minutes. Vital Signs Vital Signs Date Time Temp Pulse Resp B/P (MAP) Pulse Ox O2 Delivery O2 Flow Rate FiO2 04/01/21 06:38 97.5 90 18 113/68 (83) 100 Room Air Current Medications Current Medications Medications (Trade) Dose Ordered Sig/Gato Route PRN Reason Start Time Stop Time Status Last Admin Dose Admin Acetaminophen (Tylenol Tab) 650 mg Q6HP PRN PO HEADACHE or MILD DISCOMFORT 03/27/21 05:15 Al Hydrox/Mg Hydrox/Simethicone (Mylanta) 30 ml Q4HP PRN PO HEARTBURN/INDIGESTION 03/27/21 05:15 Diphenhydramine HCl (Benadryl) 50 mg STAT STAT IM 03/27/21 12:33 03/27/21 12:37 DC 03/27/21 13:48 Diphenhydramine HCl (Benadryl) 50 mg STAT STAT IM 03/28/21 17:05 03/28/21 17:10 DC 03/28/21 17:35 Diphenhydramine HCl (Benadryl) 50 mg STAT STAT IM 03/30/21 23:27 03/30/21 23:30 DC 03/30/21 23:47 Diphenhydramine HCl (Benadryl) 50 mg STAT STAT PO 03/30/21 23:12 03/30/21 23:16 DC Diphenhydramine HCl (Benadryl) 50 mg STAT STAT PO 03/31/21 17:41 03/31/21 17:42 DC 03/31/21 17:44 Haloperidol (Haldol) 5 mg STAT STAT IM 03/30/21 23:27 03/30/21 23:30 DC 03/30/21 23:47 Haloperidol (Haldol) 10 mg STAT STAT IM 03/27/21 12:33 03/27/21 12:37 DC 03/27/21 13:48 Haloperidol (Haldol) 10 mg STAT STAT IM 03/28/21 17:05 03/28/21 17:10 DC 03/28/21 17:36 Home Med (Home Med List Complete!) ASDIRECTED XX 03/27/21 06:35 03/27/21 06:36 DC Lorazepam (Ativan) 2 mg STAT STAT IM 03/27/21 12:33 03/27/21 12:37 DC 03/27/21 13:48 Lorazepam (Ativan) 2 mg STAT STAT IM 03/28/21 17:05 03/28/21 17:10 DC 03/28/21 17:36 Lorazepam (Ativan) 2 mg STAT STAT IM 03/30/21 23:27 03/30/21 23:30 DC 03/30/21 23:47 Lorazepam (Ativan) 2 mg STAT STAT PO 03/30/21 23:12 03/30/21 23:16 DC Lorazepam (Ativan) 2 mg STAT STAT PO 03/31/21 17:41 03/31/21 17:42 DC 03/31/21 17:44 Magnesium Hydroxide (Milk Of Magnesia) 30 ml DAILYPRN PRN PO CONSTIPATION 03/27/21 05:15 Nicotine (Nicoderm Cq 21mg) 1 patch DAILY TD 03/30/21 09:00 04/01/21 09:15 Olanzapine (ZyPREXA ZYDIS) 5 mg Q6HP PRN PO ANXIETY/AGITATION 03/28/21 19:00 04/01/21 09:15 Olanzapine (ZyPREXA ZYDIS) 5 mg STAT STAT PO 03/30/21 23:12 03/30/21 23:16 DC Olanzapine (ZyPREXA ZYDIS) 10 mg STAT STAT PO 03/31/21 17:41 03/31/21 17:42 DC 03/31/21 17:44 Olanzapine (ZyPREXA) 10 mg QHS PO 03/28/21 21:00 03/31/21 21:17 Trazodone HCl (Desyrel) 50 mg QHSP PRN PO INSOMNIA 03/27/21 05:15 03/30/21 20:37 Allergies Coded Allergies: No Known Allergies (Unverified , 03/26/21) VICKY SANTANA NP Apr 01, 2021 09:49
[2021-04-01 16:28] VITALS: BP 119/60
[2021-04-01] MEDS: OLANZapine 10 MG TAB PO SCH (21:03)
[2021-04-01] MEDS: traZODone 50 MG TAB PO PRN (21:03)
[2021-04-02] MEDS: OLANZapine ORAL DISINTEGRATING TAB 5MG PO PRN (00:05)
[2021-04-02 06:26] VITALS: BP 115/56
[2021-04-02] MEDS: NICOTINE 21MG/24HR 1 EA TRANSDERMAL TD SCH (08:11)
[2021-04-02 09:10] LABS: CHOLESTEROL RISK RATIO 2.592 (<5)
[2021-04-02] MEDS ORDERED: NICO21PAT TD (10:44)
[2021-04-02] MEDS ORDERED: OLAN1TAB20 PO (10:44)
--- NOTE | 2021-04-02 11:22 | MHDSPDOC ---
[facility] Discharge Summary Discharge Summary DATE OF ADMISSION: Mar 27, 2021 at 05:15 DATE OF DISCHARGE: April 02, 2021 at 10:54 DISCHARGE DIAGNOSES: Unspecified psychotic disorder Cannabis use disorder REASON FOR ADMISSION: Patient is a 20 -year-old Single, Employed, Domiciled, , male, who was brought in on a 9.41 by [place] [employer] after the patient called 911. Prior to his interview this morning, patient had taken the batteries out of cordless phone and stated that the government was listening to his conversations. The patient was in the doorway attempting to leave his room. He is Covid positive and was redirected to his room, explained the quarantine policy, and patient began to argue with staff. He then began to argue hospital about hospital policy, restrictions, and conspiracies. After much encouragement, patient was agreeable to interview. Patient reports today that he was running away from the police. Patient had called them and they found him in the [place]/ Patient talks about running away from "illuminati "that these are white people who descended from [place]. Patient believes broadcasting is happening to the phone, he is quite paranoid although cooperative in the interview, made delusional and bizarre statements throughout his interview. Patient denies any illicit use of drugs other than cannabis, denies alcohol use and reports that he has had periods of poor sleep recently. PER ED REPORT Pt was brought to the ED by police on a 9.41 due to bizarre behavior. Per police, on the night of 03/25/21 pt. called police & reported that he found things in the [place] that he thought police needed to see. When police arrived pt. refused to identify himself & then got in his car & took off. Police were concerned about his behavior & thought he might be under the influence so they attempted to pull him over. Pt refused to fur puller & led police on a lizzy. At one point pt. was doing 90mph so police called off the lizzy due to it being too dangerous. [facility] police were called by a third libertarian who stated that pt. was on their porch & had spent the night in the [place]. Pt told police that he had been kidnapped by the Illuminati. Police spoke to pt.s mother, who had reported him missing, & she states that this behavior is not normal for pt. Pt states that he does not remember who brought him to the ED & states that he forgets things a lot. He stated that he was brought to the ED because the police are the Illuminati & "life is all just a damn lie." Pt states that he has proof that the Illuminati are doing witchcraft. He then states that he has lived through three lives, not literally but through personification, & that the three lives were past, present, & future. Pt also states that he was kidnapped by the Illuminati & that he slept in the [place] because they stole his car & money. Pt is very focused on the letter I & also states that the letter I relates to eyes. Pt also states that "shape shifters are real & I am one." Pt's TP is very disorganized & he is very hard to follow. He often provides answers that do not make sense in relation to the questions asked. For example, when asked why he was in the [place] area he stated "Alessio Gilberto." When asked about OP tx pt. stated "music & self-love." Pt's hands are covered in dirt & he is disheveled. He often laughs inappropriately. Pt denies both SI & HI. He states that he has had many suicide attempts in the past & states "we all have." Pt states he attempted suicide via "lynching." When asked about AH pt. states "I hear your voice & also the one giving me all the answers." When asked who is giving him the answers he states "Thao, the goddess of wisdom." Pt reports a Hx of depression with no admissions. TW was unable to get pt. to answer questions about mood, concentration, energy levels, sleep, & appetite due to pt.s level of disorganization. TW was also unable to complete PHQ-4, RODS, or CAGE for the same reason. Pt reports occasional alcohol use & daily MJ use. His tox screen was positive for cannabis. TW spoke to pt.s mother, Vanessa Steinberg ([phone]), with pt.s permission. She states that pt has no Hx of mental health px's but over the past two weeks has become paranoid & delusional. She states that pt. has told her that people are out to hurt him & are chasing him. He also believes his mother is conspiring against him. Vanessa states that he has suddenly started talking about witchcraft, gods, & goddesses. She states that pt. has trouble following what people are saying, he cannot stay on topic, & has a poor memory. She states that she does not know why put came to the [place] area (he lives in the [facility]). She states that pt. uses MJ & she is wondering if the MJ was laced with something that could cause psychosis. VITAL SIGNS: See below. CONSULTANTS INVOLVED: See Medical H + P by Hospitalist TREATMENT AND PROGRESS ON THE UNIT: Patient was admitted to the [facility] on a legal status was afforded the following treatment modalities: 1) Individual Therapy 2) Group Therapy 3) Medication Management 4) Milieu Therapy 5) Safe Environment HOSPITAL COURSE: Patient was admitted to [facility] on a legal status. Patient was admitted to inpatient psychiatrist for psychotic behaviors. Due to his COVID + results, patient was quarantined and was unable to participate and fully engage in all the treatments such as milieu and group therapies. Initially patient had refused medications, was given emergency medications x 2 for his aggression and level of potential violence. Patient had spoken to his mother who is a nurse and she encourgaed him to take the antipsychotic medication. Patient became compliant and improved quickly. Pt found medications beneficial and tolerated them well. His bizarre, psychotic and intrusive thoughts improved with treatment. This provider spoke with his mother yesterday and she confirmed that the patient had greatly improved and was stable. She felt that he was at his baseline. On day of discharge pt. denied depression, anxiety, insomnia, SI/HI, hallucinations, delusions. Pt was discharged home with follow- up with [facility] office - he declined an appointment but walk-in hours were given to the patient. Pt felt safe for discharge. DISCHARGE ASSESSMENT: In today's interview, patient is alert and oriented, pt.s dress is appropriate. Hygiene and grooming is unkempt. Smiles on approach and is pleasant and engaged in the interview. Denies depression and anxiety. Denies suicidal and homicidal ideation, planning or intent. Denies and is not observed with jacoby, psychotic symptoms of delusions, bizarre thinking, obsessions, paranoia, ruminations illogical thoughts, flight of ideas or having poor insight and judgement. Reinforced with patient need to abstain from alcohol and drugs. At discharge patient has normal mentation, declines further hospitalization on a voluntary status and meets criteria for discharge today. Discussed indications of medications, potential benefits and risks, alternatives (including no treatment) and questions were encouraged and answered. Patient encouraged to return to hospital if symptoms worsen or change and encouraged to call unit if he/she/they needs to speak to provider for questions regarding medications or care. MENTAL STATUS EXAMINATION ON DISCHARGE: Patient is a 20 -year-old Single, Employed, Domiciled, , male, who was brought in on a 9.41 by [place] [employer] for psychotic and bizarre behaviors Speech: Is fluid, conversant, normal rate, tone and volume Language skills are intact Thought processes including: linear and goal oriented Thought content: denies depression and anxiety. Denies suicidal/homicidal ideation, planning or intent. Abstract reasoning, and computation: fair Description of associations: denies, none observed Description of abnormal or psychotic thoughts: denies, some grandiosity, fantasy thinking but nothing that warrants continued hospitalization Judgment: fair Insight: fair Orientation: alert and oriented to person, place, time and situation Recent and remote memory: intact Attention span and concentration: good Language: expansive Fund of knowledge: average Mood: Euthymic Mood Affect: reactive Suicide Risk Assessment: 1) Does the patient wish to be ? No 2) Since your admission, have you had any actual thought of killing yourself? No 3) Since your admission, have you been thinking about how you might do this? No 4) Since your admission, have you had these thoughts and had some intention of acting on them? No 5) Since your admission, have you started to work out or worked out the details of how to kill yourself? No 5A) Do you intent to carry out this plan? No and NA 6) Have you ever done anything, started anything, or prepared to do anything with any intent to ? No 6A) How long since your admission did you do any of these? NA MEDICATIONS ON DISCHARGE: See Medication Reconciliation PLAN/FOLLOWUP ARRANGEMENTS: Medical Additional information PATIENT DECLINES MEDICAL FOLLOW UP Follow Up Care Education Label Mental Health Appt 1 Address of Clinic or Practice [facility] office is located in th Phone Number For further information, please contact PABLITO Pierre at [phone] Additional information PATIENT DECLINED SCHEDULED FOLLOW UP. WALK IN HOURS ARE POSTED BELOW The office is open Thursday, and Thursday, 8:30AM-5:00PM, and Thursday and Wednesdays; 8:30AM- 8:00PM. The amount of time spent in the coordination of care for this patient was approximately 25 minutes. ETOH/Disorder Med Rx ETOH/DRUG DISORDER RX: Offrd @ d/c & pt refused Vital Signs/I&Os Vital Signs Date Time Temp Pulse Resp B/P (MAP) Pulse Ox O2 Delivery O2 Flow Rate FiO2 04/02/21 06:26 97.7 82 18 115/56 (75) 98 Room Air Laboratory Data Labs 24H Laboratory Tests 2 04/02/21 08:10: Triglycerides Level 112, Total Cholesterol 140, LDL Cholesterol 64, Non-HDL Cholesterol (LDL + VLDL) 86, Total HDL Cholesterol 54, Cholesterol/HDL Ratio 2.592 Medications Scheduled Cholecalciferol (Vitamin D3) (Vitamin D3) 1,000 Unit Tablet, 1,000 UNITS PO QHS, (Reported) Nicotine (Nicotine Patch) 21 Mg Patch.td24, 1 PATCH TD DAILY for Nicotine Withdrawal, #7 Olanzapine (Olanzapine) 10 Mg Tablet, 10 MG PO QHS for Psychosis, #7 Vitamin B Complex (Vitamin B Complex) 1 Each Tablet, 1 TAB PO QHS, (Reported) Allergies Coded Allergies: No Known Allergies (Unverified , 03/26/21) VICKY SANTANA NP Apr 02, 2021 11:12
== END 2021-04-02 13:25 | disposition home or self-care (01) | DRG 754 ==
LOC: M ED 22:19 → M ED INP 03-27 05:15 → M PSY 03-27 14:50
PROVIDERS: ADMIT Psychiatry & Neurology Psychiatry; ATTEND Psychiatry & Neurology Psychiatry
DX: F32.9 Major depressive disorder, single episode, unspecified (principal); U07.1 COVID-19; F12.90 Cannabis use, unspecified, uncomplicated; F17.200 Nicotine dependence, unspecified, uncomplicated